=== PATIENT | female | born 1965 | race Caucasian/White ===

== ENCOUNTER → 2024-04-06 11:12 | Outpatient (REF) | payer BC, SELFPAY | LOC: WDC 11:12 | PROVIDERS: ATTENDING PHYSICIAN Family Medicine | DX: Z78.0 Asymptomatic menopausal state (principal); Z12.31 Encounter for screening mammogram for malignant neoplasm of breast | CPT/HCPCS: 77063; 77067; 77080 ==

== ENCOUNTER 2025-03-08 06:26 | Day surgery (SDC) | payer BC, SELFPAY | END 2025-03-08 11:26 | disposition home or self-care (01) | LOC: GI 06:26 | PROVIDERS: ATTENDING PHYSICIAN Internal Medicine Gastroenterology | DX: R13.10 Dysphagia, unspecified (principal); R12 Heartburn; R14.0 Abdominal distension (gaseous); K31.7 Polyp of stomach and duodenum; K22.89 Other specified disease of esophagus; K22.70 Barrett's esophagus without dysplasia | CPT/HCPCS: 43239; 88305; 88342 ==

== ENCOUNTER 2025-04-16 08:59 | Outpatient (RCR) | payer BC, SELFPAY ==
[2025-04-16 09:25] VITALS: BP 131/83
[2025-04-16] MEDS: RECLAST 100 IV (09:43)
[2025-04-16 10:44] VITALS: BP 127/76
== END 2025-04-17 08:08 | disposition home or self-care (01) ==
LOC: OID 08:59
PROVIDERS: ATTENDING PHYSICIAN Internal Medicine Endocrinology, Diabetes & Metabolism; FAMILY PHYSICIAN Family Medicine
DX: M81.0 Age-related osteoporosis without current pathological fracture (principal)
CPT/HCPCS: 96365; J3489

== ENCOUNTER → 2025-08-23 08:28 | Outpatient (REF) | payer BC, SELFPAY | LOC: WDC 08:28 | PROVIDERS: ATTENDING PHYSICIAN Family Medicine | DX: Z12.31 Encounter for screening mammogram for malignant neoplasm of breast (principal) | CPT/HCPCS: 77063; 77067 ==